=== PATIENT | female | born 1965 | race Two or more races ===

== ENCOUNTER → 2016-07-19 | Outpatient (CLI) | payer OTHER ==
[2016-07-19 13:26] LABS: ALANINE AMINOTRANSFERASE 27 U/L (9-52); ALBUMIN 4.3 g/dL (3.5-5.0); ALKALINE PHOSPHATASE 101 U/L (38-126); ANION GAP 10 (5-19); ASPARTATE AMINO TRANSFERASE 22 U/L (14-36); BILIRUBIN,TOTAL 0.4 mg/dL (0.2-1.3); BLOOD UREA NITROGEN 26 mg/dL (7-20); CALCIUM 9.7 mg/dL (8.4-10.2); CARBON DIOXIDE 32 mmol/L (22-30); CHLORIDE 101 mmol/L (98-107); CREATININE RESULT 0.67 mg/dL (0.52-1.25); GLUCOSE 94 mg/dL (75-110); SODIUM 142.9 mmol/L (137-145); TOTAL PROTEIN 7.4 g/dL (6.3-8.2)
[2016-07-23 12:21] LABS: CHOLESTEROL 212.31 mg/dL (0-200); Direct HDL 47 mg/dL (>40); TRIGLYCERIDES 71 mg/dL (<150)
[2016-07-23 12:33] LABS: DIRECT LDL 157 mg/dL (<100)
== END ==
LOC: CCC 12:21
DX: I10 Essential (primary) hypertension (principal)
CPT/HCPCS: 36415; 80053; 80061; 83036; 84436; 84443

== ENCOUNTER 2019-01-19 08:28 | Emergency (ER) | payer SELFPAY ==
--- NOTE | 2019-01-19 09:47 | RADIOLOGY REPORT (SQ) ---
EXAM DESCRIPTION: FOOT RIGHT COMPLETE COMPLETED DATE/TIME: 01/19/2019 9:30 am REASON FOR STUDY: foot injury COMPARISON: None. NUMBER OF VIEWS: Three views. TECHNIQUE: AP, lateral and oblique radiographic images acquired of the right foot. LIMITATIONS: None. FINDINGS: MINERALIZATION: Normal. BONES: No acute fracture or dislocation. No worrisome bone lesions. JOINTS: Hallux valgus deformity right great toe. Mild medial soft tissue swelling. Minimal bony spu rring along the dorsal aspect of the 2nd and 3rd tarsometatarsal joints SOFT TISSUES: 1st metatarsophalangeal joint soft tissue swelling. No foreign body. OTHER: No other significant finding. IMPRESSION: No acute findings TECHNICAL DOCUMENTATION: JOB ID: [id number] [employer]- All Rights Reserved Reading location - IP/workstation name: [email or web address]
[2019-01-19 10:21] VITALS: BP 146/89
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
== END 2019-01-19 10:41 | disposition home or self-care (01) ==
LOC: ER 08:28
DX: S80.00XA Contusion of unspecified knee, initial encounter (principal); S80.211A Abrasion, right knee, initial encounter; X58.XXXA Exposure to other specified factors, initial encounter; S90.819A Abrasion, unspecified foot, initial encounter; S90.416A Abrasion, unspecified lesser toe(s), initial encounter; W19.XXXA Unspecified fall, initial encounter; Y93.39 Activity, other involving climbing, rappelling and jumping off; I10 Essential (primary) hypertension; F17.200 Nicotine dependence, unspecified, uncomplicated
CPT/HCPCS: 99283

== ENCOUNTER 2019-03-24 10:38 | Emergency (ER) | payer BC ==
[2019-03-24 10:49] VITALS: BP 134/87
[2019-03-24] MEDS ORDERED: ACETAMINOPHEN 325 MG TABLET PO ONE (11:04)
--- NOTE | 2019-03-24 11:07 | ER Document Report ---
HPI - HPI Time Seen by Provider: 03/24/19 10:57 Pain Level: 5 Context: Patient is a 54-year-old female with a history of hypertension, hyperlipidemia, and arthritis who presents emergency department with a chief complaint of right hand pain, knee pain, and elbow pain. She has been diagnosed with carpal tunnel syndrome. She wears her brace periodically. She just recently started a new job in a [employer], which has aggravated her carpal tunnel and her arthritis in her knee. She took Goody powders to help with pain, which has given her a little relief. She also uses Voltaren gel at home. - ROS Systems Reviewed and Negative: Yes All other systems reviewed and negative - REPRODUCTIVE Reproductive: DENIES: : - MUSCULOSKELETAL Musculoskeletal: REPORTS: Extremity pain - Right knee, hand, and wrist - DERM Skin Color: Normal Skin Problems: None Past Medical History - General Information source: Patient - Social History Smoking Status: Current Every Day Smoker Chew tobacco use (# tins/day): No Frequency of alcohol use: Rare Drug Abuse: None Family History: Reviewed & Not Pertinent, CAD - Brother with 3 vessel bypass at 53 years old., DM, Hypertension Patient has suicidal ideation: No Patient has homicidal ideation: No - Past Medical History Cardiac Medical History: Reports: Hx Hypercholesterolemia, Hx Hypertension Denies: Hx Coronary Artery Disease, Hx Heart Attack Pulmonary Medical History: Denies: Hx Asthma, Hx Bronchitis, Hx COPD, Hx Pneumonia, Hx Tuberculosis Neurological Medical History: Reports: Hx Migraine. Denies: Hx Cerebrovascular Accident, Hx Seizures Renal/ Medical History: Denies: Hx Peritoneal Dialysis GI Medical History: Reports: Hx Gastroesophageal Reflux Disease Musculoskeletal Medical History: Denies Hx Arthritis Past Surgical History: Reports: Hx Breast Surgery - lumpectomy, Hx Hysterectomy, Hx Tubal Ligation. Denies: Hx Pacemaker - Immunizations Hx Diphtheria, Pertussis, Tetanus Vaccination: Yes Vertical Provider Document - CONSTITUTIONAL Agree With Documented VS: Yes Exam Limitations: No Limitations General Appearance: No Apparent Distress - INFECTION CONTROL TRAVEL OUTSIDE OF THE [place] IN LAST 30 DAYS: No - HEENT HEENT: Atraumatic, Normocephalic, PERRLA - NECK Neck: Normal Inspection - RESPIRATORY Respiratory: No Respiratory Distress - CARDIOVASCULAR Cardiovascular: Regular Rate, Regular Rhythm Pulses: Normal: Radial, Dorsalis pedis - MUSCULOSKELETAL/EXTREMETIES Musculoskeletal/Extremeties: FROM, Tender - Right knee and right wrist - NEURO Level of Consciousness: Awake, Alert, Appropriate Motor/Sensory: No Motor Deficit, No Sensory Deficit - DERM Integumentary: Warm, Dry, No Rash Course - Re-evaluation Re-evalutation: 03/24/19 There are no acute findings in the patient's x-rays at that time. I suspect her hand pain is an exacerbation of her carpal tunnel syndrome and her knee pain is from her arthritis. She will be referred to orthopedics for further management. I encouraged her to continue to wear her Mir wrap or splint to help with her carpal tunnel. She will also receive a prescription for naproxen for pain relief. I instructed her not to take ibuprofen at this time. Capillary refill less than 3 seconds. Peripheral pulses 2+. No vascular compromise noted. Pat ient able to move all limbs and digits with no difficulty. Follow-up precautions were given. Verbal discharge instructions were given to the patient. They verbalized understanding. They are stable for discharge. - Vital Signs Vital signs: Temp Pulse Resp BP Pulse Ox 98.0 F 64 18 134/87 H 98 03/24/19 10:48 03/24/19 10:48 03/24/19 10:48 03/24/19 10:48 03/24/19 10:48 Discharge - Discharge Clinical Impression: Right knee pain Qualifiers: Chronicity: chronic Qualified Code(s): M25.561 - Pain in right knee Condition: Stable Disposition: HOME, SELF-CARE Additional Instructions: You are seen today in the emergency department for right hand pain, elbow pain, and knee pain. The pain you are having is most likely due to your arthritis and your carpal tunnel. Please continue to use an Mir wrap or your brace to help with your symptoms. You are being prescribed naproxen, medication to help with pain. Please take this as directed. Please follow-up with orthopedics in regards to this visit. Please establish primary care provider. They may be able to refer you for physical therapy. Prescriptions: Naproxen Sodium [All Day Pain Relief] 220 mg PO BIDP PRN #60 tablet PRN Reason: Forms: Return to Work Referrals: TONIO WILKINS MD [ACTIVE STAFF] - Follow up in 1 week
--- NOTE | 2019-03-24 11:38 | RADIOLOGY REPORT (SQ) ---
EXAM DESCRIPTION: ELBOW RIGHT OVER 2 VIEWS COMPLETED DATE/TIME: 03/24/2019 11:30 am REASON FOR STUDY: pain COMPARISON: None. NUMBER OF VIEWS: Four views. TECHNIQUE: AP, lateral, and both oblique radiographic images acquired of the right elbow. LIMITATIONS: None. FINDINGS: MINERALIZATION: Normal. BONES: No acute fracture or dislocation. No worrisome bone lesions. JOINT: No effusion. SOFT TISSUES: No soft tissue swelling. No foreign body. OTHER: No other significant finding. IMPRESSION: NEGATIVE STUDY OF THE RIGHT ELBOW. NO RADIOGRAPHIC EVIDENCE OF ACUTE INJURY. TECHNICAL DOCUMENTATION: JOB ID: [id number] [employer]- All Rights Reserved Reading location - IP/workstation name: [email or web address]
--- NOTE | 2019-03-24 11:38 | RADIOLOGY REPORT (SQ) ---
EXAM DESCRIPTION: HAND RIGHT 3 VIEWS COMPLETED DATE/TIME: 03/24/2019 11:30 am REASON FOR STUDY: pain/arthritis COMPARISON: 12/26/2015 EXAM PARAMETERS: NUMBER OF VIEWS: Three views. TECHNIQUE: AP, lateral and oblique radiographic images acquired of the right hand. LIMITATIONS: None. FINDINGS: MINERALIZATION: Normal. BONES: No acute fracture or dislocation. No worrisome bone lesions. JOINTS: No effusions. SOFT TISSUES: No soft tissue swelling. No foreign body. OTHER: No other significant finding. IMPRESSION: NEGATIVE STUDY OF THE RIGHT HAND. NO RADIOGRAPHIC EVIDENCE OF ACUTE INJURY. TECHNICAL DOCUMENTATION: JOB ID: [id number] [employer]- All Rights Reserved Reading location - IP/workstation name: [email or web address]
--- NOTE | 2019-03-24 11:39 | RADIOLOGY REPORT (SQ) ---
EXAM DESCRIPTION: KNEE RIGHT 4 VIEWS COMPLETED DATE/TIME: 03/24/2019 11:30 am REASON FOR STUDY: pain/arthritis COMPARISON: 01/11/2012 NUMBER OF VIEWS: Four views. TECHNIQUE: AP, lateral, and both oblique radiographic images acquired of the right knee. LIMITATIONS: None. FINDINGS: MINERALIZATION: Normal. BONES: No acute fracture or dislocation. No worrisome bone lesions. JOINT: No effusion. SOFT TISSUES: No soft tissue swelling. No radio-opaque foreign body. OTHER: No other significant finding. IMPRESSION: NEGATIVE STUDY OF THE RIGHT KNEE. NO RADIOGRAPHIC EVIDENCE OF ACUTE INJURY. TECHNICAL DOCUMENTATION: JOB ID: [id number] [employer]- All Rights Reserved Reading location - IP/workstation name: [email or web address]
== END 2019-03-24 12:38 | disposition home or self-care (01) ==
LOC: ER 10:38
DX: M79.641 Pain in right hand (principal); M25.561 Pain in right knee; M25.521 Pain in right elbow; F17.200 Nicotine dependence, unspecified, uncomplicated; I10 Essential (primary) hypertension; E78.5 Hyperlipidemia, unspecified; E78.00 Pure hypercholesterolemia, unspecified; Z90.710 Acquired absence of both cervix and uterus
CPT/HCPCS: 99283

== ENCOUNTER 2019-06-06 13:11 | Emergency (ER) | payer BC ==
--- NOTE | 2019-06-06 13:51 | ER Document Report ---
ED Medical Screen (RME) - General Chief Complaint: Headache Stated Complaint: BLOOD PRESSURE CONCERNS Time Seen by Provider: 06/06/19 13:39 Notes: 54-year-old female with history of kidney cancer presents to the emergency department with multiple chief complaints, the primary one being a severe headache. Patient states that she ran out of her antihypertensives 1 month ago and has had a headache develop since then. She states that every time she runs out of her blood pressure medication she gets a severe headache and is concerned that it might be blood pressure related. Also, she had some left sided chest pain approximately 48 hours ago that persisted for about 12 hours, was constant and dull, did not radiate, was not relieved by antacids or passing gas. Patient states she was also clammy and nauseated during that time but has since resolved. Exam: Well-appearing no acute distress, lungs are clear to auscultation all oliva, regular cardiac rate and rhythm S1-S2 heard no murmurs. NEURO: A &O X 3, normal speech, normal gailt, PERRL, EOMI, SILT, follows commands in all 4 extremities, no gross abnormalities of cranial nerves, no focal neuro deficits, no pronator drift, [id number] testing normal, rapid alternating hand movements normal, [id number] normal, filament tester strength 5/5 bilateral, 5/5 strength in both proximal and distal upper and lower extremities I have greeted and performed a rapid initial assessment of this patient. A comprehensive ED assessment and evaluation of the patient, analysis of test results and completion of medical decision making process will be conducted by an additional ED providers. TRAVEL OUTSIDE OF THE [place] IN LAST 30 DAYS: No - Related Data Allergies/Adverse Reactions: Iodinated Contrast Media Allergy (Intermediate, Verified 06/06/19 13:36) Hives iodine [Iodine] Allergy (Intermediate, Verified 06/06/19 13:36) Hives CHLORINE Adverse Reaction (Uncoded 06/06/19 13:36) Hives Past Medical History - Past Medical History Cardiac Medical History: Reports: Hx Hypercholesterolemia, Hx Hypertension Denies: Hx Coronary Artery Disease, Hx Heart Attack Pulmonary Medical History: Denies: Hx Asthma, Hx Bronchitis, Hx COPD, Hx Pneumonia, Hx Tuberculosis Neurological Medical History: Reports: Hx Migraine. Denies: Hx Cerebrovascular Accident, Hx Seizures Renal/ Medical History: Denies: Hx Peritoneal Dialysis GI Medical History: Reports: Hx Gastroesophageal Reflux Disease Musculoskeltal Medical History: Denies Hx Arthritis Past Surgical History: Reports: Hx Breast Surgery - lumpectomy, Hx Hysterectomy, Hx Tubal Ligation. Denies: Hx Pacemaker - Immunizations Hx Diphtheria, Pertussis, Tetanus Vaccination: Yes Physical Exam - Vital signs Vitals: Temp Pulse Resp BP Pulse Ox 98.6 F 95 16 172/96 H 95 06/06/19 13:22 06/06/19 13:22 06/06/19 13:22 06/06/19 13:22 06/06/19 13:22 Course - Vital Signs Vital signs: Temp Pulse Resp BP Pulse Ox 98.6 F 95 16 172/96 H 95 06/06/19 13:22 06/06/19 13:22 06/06/19 13:22 06/06/19 13:22 06/06/19 13:22
[2019-06-06] MEDS ORDERED: NORMAL SALINE 1000 ML 1,000 ML IV ONE (14:41)
[2019-06-06] MEDS ORDERED: MORPHINE SULFATE 10 MG/ML INJ IV ONE (14:41)
[2019-06-06] MEDS ORDERED: ONDANSETRON HCL INJ/PF 4 MG/2 ML SDV IV ONE ×2 (14:41→15:55)
--- NOTE | 2019-06-06 15:11 | RADIOLOGY REPORT (SQ) ---
EXAM DESCRIPTION: CHEST SINGLE VIEW COMPLETED DATE/TIME: 06/06/2019 2:52 pm REASON FOR STUDY: chest pain COMPARISON: 11/24/2015 EXAM PARAMETERS: NUMBER OF VIEWS: One view. TECHNIQUE: Single frontal radiographic view of the chest acquired. RADIATION DOSE: NA LIMITATIONS: None. FINDINGS: LUNGS AND PLEURA: No opacities, masses or pneumothorax. No pleural effusion. MEDIASTINUM AND HILAR STRUCTURES: No masses. Contour normal. HEART AND VASCULAR STRUCTURES: Heart normal in size. Normal vasculature. BONES: No acute findings. HARDWARE: None in the chest. OTHER: No other significant finding. IMPRESSION: NO ACUTE RADIOGRAPHIC FINDING IN THE CHEST. TECHNICAL DOCUMENTATION: JOB ID: [id number] [employer]- All Rights Reserved Reading location - IP/workstation name: [email or web address]
--- NOTE | 2019-06-06 15:12 | RADIOLOGY REPORT (SQ) ---
EXAM DESCRIPTION: CT HEAD WITHOUT COMPLETED DATE/TIME: 06/06/2019 2:52 pm REASON FOR STUDY: severe headache COMPARISON: None. TECHNIQUE: Axial images acquired through the brain without intravenous contrast. Images reviewed wi th bone, brain and subdural windows. Additional sagittal and coronal reconstructions were generated. Images stored on PACS. All CT scanners at this facility use dose modulation, iterative reconstruction, and/or weight based d osing when appropriate to reduce radiation dose to as low as reasonably achievable (ALARA). [facility]: Dose Right [facility]: CareDose [facility]: Dose Right [facility]: Teradose 4D [facility]: Elepago RADIATION DOSE: CT Rad equipment meets quality standard of care and radiation dose reduction techniq ues were employed. CTDIvol: 53.2 mGy. DLP: 964 mGy-cm. mGy. LIMITATIONS: None. FINDINGS: VENTRICLES: Normal size and contour. CEREBRUM: No masses. No hemorrhage. No midline shift. No evidence for acute infarction. Normal gra y/white matter differentiation. No areas of low density in the white matter. CEREBELLUM: No masses. No hemorrhage. No alteration of density. No evidence for acute infarction. EXTRAAXIAL SPACES: No fluid collections. No masses. ORBITS AND GLOBE: No intra- or extraconal masses. Normal contour of globe without masses. CALVARIUM: No fracture. PARANASAL SINUSES: No fluid or mucosal thickening. SOFT TISSUES: No mass or hematoma. OTHER: No other significant finding. IMPRESSION: NORMAL BRAIN CT WITHOUT CONTRAST. EVIDENCE OF ACUTE STROKE: NO. COMMENT: Quality ID # [id number]: Final reports with documentation of one or more dose reduction techniques (e.g., Automated exposure control, adjustment of the mA and/or kV according to patient size, use of iterative reconstruction technique) TECHNICAL DOCUMENTATION: JOB ID: [id number] [employer]- All Rights Reserved Reading location - IP/workstation name: [email or web address]
[2019-06-06 15:35] LABS: ABSOLUTE BASOPHILS # (AUTO) 0.1 10^3/uL (0.0-0.2); ABSOLUTE EOSINOPHILS # (AUTO) 0.2 10^3/uL (0.0-0.6); ABSOLUTE LYMPHOCYTES (AUTO) 2.6 10^3/uL (0.5-4.7); ABSOLUTE MONOCYTES (AUTO) 0.7 10^3/uL (0.1-1.4); ABSOLUTE NEUT (AUTO) 5.3 10^3/uL (1.7-8.2); BASOPHILS % (AUTO) 0.7 % (0-2); EOSINOPHILS % (AUTO) 1.8 % (0-6); HEMATOCRIT 45.6 % (36.0-47.0); HEMOGLOBIN 15.3 g/dL (12.0-15.5); LYMPHOCYTES % (AUTO) 29.6 % (13-45); MEAN CORPUSCULAR HEMOGLOBIN 29.1 pg (27.0-33.4); MEAN CORPUSCULAR HGB CONC 33.4 g/dL (32.0-36.0); MEAN CORPUSCULAR VOLUME 87 fl (80-97); MONOCYTES % (AUTO) 7.8 % (3-13); PLATELET COUNT 333 10^3/uL (150-450); RED BLOOD COUNT 5.24 10^6/uL (3.72-5.28); RED CELL DISTRIBUTION WIDTH 14.5 % (11.5-14.0); SEGMENTED NEUTROPHILS % (AUTO) 60.1 % (42-78); TOTAL CELLS COUNTED % (AUTO) 100 %; WHITE BLOOD COUNT 8.8 10^3/uL (4.0-10.5)
[2019-06-06 15:48] LABS: A TYPE INFLUENZA AG NEGATIVE (NEGATIVE); B INFLUENZA AG NEGATIVE (NEGATIVE)
[2019-06-06 15:54] LABS: ALBUMIN 4.4 g/dL (3.5-5.0); ALKALINE PHOSPHATASE 116 U/L (38-126); ANION GAP 9 (5-19); ASPARTATE AMINO TRANSFERASE 20 U/L (14-36); BILIRUBIN,DIRECT 0.2 mg/dL (0.0-0.4); BILIRUBIN,TOTAL 0.3 mg/dL (0.2-1.3); BLOOD UREA NITROGEN 22 mg/dL (7-20); CARBON DIOXIDE 31 mmol/L (22-30); CHLORIDE 103 mmol/L (98-107); GLUCOSE 99 mg/dL (75-110); POTASSIUM 4.7 mmol/L (3.6-5.0); TOTAL PROTEIN 7.9 g/dL (6.3-8.2)
--- NOTE | 2019-06-06 16:11 | ER Document Report ---
ED General - General Chief Complaint: Headache Stated Complaint: BLOOD PRESSURE CONCERNS Time Seen by Provider: 06/06/19 13:39 TRAVEL OUTSIDE OF THE U.S. IN LAST 30 DAYS: No - HPI Notes: 54-year-old female to the emergency department with multiple complaints. Patient's first complaint is that she has had a headache to the top of her head for nearly 1 month. She states that she has been out of her blood pressure medicine HCTZ 25 mg and lisinopril 20 mg for about 1 month. She states that she typically gets headaches when she is not on her blood pressure medicine. She denies any difficulty speaking, walking, numbness and tingling, blurry vision, dizziness, shortness of breath. She states that for the past 36 hours she has been experiencing epigastric abdominal pain that radiates into her chest with some nausea and vomiting. She states that she was at work at 2 AM on Friday morning when her symptoms began. She states initially she thought that she was constipated and needed to use the restroom but found that was not the case. She states the pain was constant through that day and she ended up spending most of the day in the bed at her daughter's house. She states that she took some Tums and had a little bit of relief of her symptoms but then at about 2 AM this morning she began to have vomiting. She states when she vomits she becomes diaphoretic. She denies shortness of breath or increase in chest pain when she is exerting herself. She states mainly is within the abdomen and then kind of comes up into the chest. She states she continues to feel little bit of abdominal pain and chest pain currently. She denies any history of cardiac events in herself. Her brother who is 59 has had a heart attack and a triple bypass. Other than that there is no other family history of coronary artery disease. She is a smoker. She does have a history of hypertension. She denies a history of diabetes or hyperlipidemia. She has a history of renal cancer but she is currently in remission. She denies any leg swelling, denies history of DVT. She is not on any hormone replacement therapy. - Related Data Allergies/Adverse Reactions: Iodinated Contrast Media Allergy (Intermediate, Verified 06/06/19 13:36) Hives iodine [Iodine] Allergy (Intermediate, Verified 06/06/19 13:36) Hives CHLORINE Adverse Reaction (Uncoded 06/06/19 13:36) Hives Past Medical History - General Information source: Patient - Social History Smoking Status: Current Every Day Smoker Lives with: Family Family History: Reviewed & Not Pertinent, CAD - Brother with 3 vessel bypass at 53 years old., DM, Hypertension Patient has suicidal ideation: No Patient has homicidal ideation: No - Past Medical History Cardiac Medical History: Reports: Hx Hypercholesterolemia, Hx Hypertension Denies: Hx Coronary Artery Disease, Hx Heart Attack Pulmonary Medical History: Denies: Hx Asthma, Hx Bronchitis, Hx COPD, Hx Pneumonia, Hx Tuberculosis Neurological Medical History: Reports: Hx Migraine. Denies: Hx Cerebrovascular Accident, Hx Seizures Renal/ Medical History: Denies: Hx Peritoneal Dialysis GI Medical History: Reports: Hx Gastroesophageal Reflux Disease Musculoskeletal Medical History: Denies Hx Arthritis Past Surgical History: Reports: Hx Breast Surgery - lumpectomy, Hx Hysterectomy, Hx Tubal Ligation. Denies: Hx Pacemaker - Immunizations Hx Diphtheria, Pertussis, Tetanus Vaccination: Yes Review of Systems - Review of Systems Constitutional: Diaphoresis - Sweaty when vomiting. denies: Chills, Fever EENT: No symptoms reported Cardiovascular: Chest pain. denies: Palpitations, Heart racing, Syncope, Dizziness, Lightheaded Respiratory: denies: Cough, Short of breath Gastrointestinal: See HPI, Abdominal pain, Nausea, Vomiting. denies: Diarrhea Genitourinary: No symptoms reported Female Genitourinary: No symptoms reported Musculoskeletal: No symptoms reported Skin: No symptoms reported Hematologic/Lymphatic: No symptoms reported Neurological/Psychological: Headaches. denies: Sensory change, Gait changes, Loss of power, Paralysis, Speech impairment, Numbness, Tingling -: Yes All other systems reviewed and negative Physical Exam - Vital signs Vitals: Temp Pulse Resp BP Pulse Ox 98.6 F 95 16 172/96 H 95 06/06/19 13:22 06/06/19 13:22 06/06/19 13:22 06/06/19 13:22 06/06/19 13:22 Interpretation: Hypertensive - General General appearance: Appears well, Alert - HEENT Head: Normocephalic, Atraumatic Eyes: Normal Pupils: PERRL Ears: Normal External canal: Normal Tympanic membrane: Normal Sinus: Normal Nasal: Normal Mouth/Lips: Normal Pharynx: Normal. No: Potential airway comprom. Neck: Normal, Supple. No: Lymphadenopathy, Meningismus - Respiratory Respiratory status: No respiratory distress Chest status: Nontender Breath sounds: Normal. No: Rales, Rhonchi, Stridor, Wheezing Chest palpation: Normal - Cardiovascular Rhythm: Regular Heart sounds: Normal auscultation Murmur: No - Abdominal Inspection: Normal Distension: No distension Bowel sounds: Normal Tenderness: Tender - Positive epigastric tenderness to palpation. Negative right upper quadrant tenderness to palpation. No guarding, no rebound. Negative McBurney's point, negative CVA tenderness. 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 No: Pronator drift Sensory: Normal - Psychological Associated symptoms: Normal affect, Normal mood - Skin Skin Temperature: Warm Skin Moisture: Dry Skin Color: Normal Course - Re-evaluation Re-evalutation: 06/06/19 16:12 patient with episode of vomiting. ordered zofran. Will continue to monitor the patient. 06/06/19 18:25 Patient improved significantly and tolerated PO. Will discharge home. Impression: NV, epigastric pain, headache, HTN, med refill. Low suspicion that her epigastric pain that radiates into her chest is cardiac in origin -- it's been constant for nearly 24 hours. She has a HEART SCORE of 3. She has reas suring imaging studies. Trop is negative. low wells criteria. She has an appointment with [facility] for June 28 and I have encouraged her to keep it. - Vital Signs Vital signs: Temp Pulse Resp BP Pulse Ox 98 F 95 23 H 160/94 H 98 06/06/19 16:01 06/06/19 13:22 06/06/19 17:01 06/06/19 17:01 06/06/19 17:01 - Laboratory Result Diagrams: 06/06/19 15:05 06/06/19 15:05 Laboratory results interpreted by me: 06/06/19 06/06/19 15:05 15:05 RDW 14.5 H Carbon Dioxide 31 H BUN 22 H - Diagnostic Test Radiology reviewed: Image reviewed, Reports reviewed Discharge - Discharge Clinical Impression: Epigastric abdominal pain Vomiting Qualifiers: Vomiting type: unspecified Vomiting Intractability: non-intractable Nausea presence: with nausea Qualified Code(s): R11.2 - Nausea with vomiting, unspecified Hypertension Qualifiers: Hypertension type: essential hypertension Qualified Code(s): I10 - Essential (primary) hypertension Headache Qualifiers: Headache type: unspecified Headache chronicity pattern: acute headache Intractability: not intractable Qualified Code(s): R51 - Headache Condition: Stable Disposition: HOME, SELF-CARE Instructions: Abdominal Pain ([facility]), High Blood Pressure ([facility]), Vomiting ([facility]) Additional Instructions: PUSH FLUIDS. BLAND DIET TOLERATED. TAKE YOUR BLOOD PRESSURE MEDICINE WITHOUT FAIL. RETURN IF WORSENING SYMPTOMS. Prescriptions: Ondansetron [Zofran Odt 4 mg Tablet] 1 - 2 tab PO Q4HP PRN #10 tab.rapdis PRN Reason: Lisinopril/Hydrochlorothiazide [Lisinopril-Hctz 20-25 mg Tab] 1 each PO DAILY #30 tablet
[2019-06-06] MEDS ORDERED: HYDROCHLOROTHIAZIDE 25 MG TABLET PO ONE (17:13)
[2019-06-06] MEDS ORDERED: KETOROLAC TROMETHAMINE INJ/PF 30 MG/1 ML SDV IV ONE (17:13)
[2019-06-06] MEDS ORDERED: LISINOPRIL 10 MG TABLET PO ONE (17:13)
--- NOTE | 2019-06-06 17:14 | EKG REPORT ---
SEVERITY:- ABNORMAL ECG - SINUS RHYTHM PROBABLE LEFT ATRIAL ABNORMALITY PROBABLE ANTEROSEPTAL INFARCT, AGE INDETERM : Confirmed by: Miah Hugo 06-Jun-2019 17:13:22
--- NOTE | 2019-06-06 17:15 | EKG REPORT ---
SEVERITY:- ABNORMAL ECG - SINUS RHYTHM PROBABLE LEFT ATRIAL ABNORMALITY BORDERLINE RIGHT AXIS DEVIATION CONSIDER ANTEROSEPTAL INFARCT : Confirmed by: Miah Hugo 06-Jun-2019 17:13:12
[2019-06-06 19:07] VITALS: BP 157/80
== END 2019-06-06 19:02 | disposition home or self-care (01) ==
LOC: ER 13:11
DX: R51 Headache (principal); R10.13 Epigastric pain; F17.200 Nicotine dependence, unspecified, uncomplicated; E78.00 Pure hypercholesterolemia, unspecified; I10 Essential (primary) hypertension; Z85.528 Personal history of other malignant neoplasm of kidney; Z90.710 Acquired absence of both cervix and uterus
CPT/HCPCS: 93005; 96376; 99285; 96361; 96374; 96375; 36415; 83690; 85025; 80053; 84484; 87804; 71045; 70450; 93010; J1885; J2270; J2405; J7030

== ENCOUNTER 2019-11-22 17:41 | Emergency (ER) | payer BC ==
--- NOTE | 2019-11-22 17:59 | ER Document Report ---
ED Medical Screen (RME) - General Chief Complaint: Abdominal Pain Stated Complaint: RIGHT FLANK PAIN Time Seen by Provider: 11/22/19 17:56 Mode of Arrival: Ambulatory Information source: Patient Notes: 54-year-old female presented to ED for complaint of right upper quadrant abdominal pain. She has had a cholecystectomy 2 years ago. She states she does get this pain off and on but is never lasted as long as the did the day. She has had a hysterectomy in the past. She does have a history of high blood pressure, reflux, colonoscopy that was benign, and kidney cancer on the left the cancer was removed but the kidney was spared. She does smoke a pack a day does not drink or do any illicit drugs. Patient is alert oriented respirations regular and unlabored speaking in full sentences. She denies any nausea at this time. I have greeted and performed a rapid initial assessment of this patient. A comprehensive ED assessment and evaluation of the patient, analysis of test results and completion of medical decision making process will be conducted by an additional ED providers. TRAVEL OUTSIDE OF THE U.[place]. IN LAST 30 DAYS: No - Related Data Allergies/Adverse Reactions: Iodinated Contrast Media Allergy (Intermediate, Verified 11/22/19 17:53) Hives iodine [Iodine] Allergy (Intermediate, Verified 11/22/19 17:53) Hives CHLORINE Adverse Reaction (Uncoded 11/22/19 17:53) Hives Past Medical History - Past Medical History Cardiac Medical History: Reports: Hx Hypercholesterolemia, Hx Hypertension Denies: Hx Coronary Artery Disease, Hx Heart Attack Pulmonary Medical History: Denies: Hx Asthma, Hx Bronchitis, Hx COPD, Hx Pneumonia, Hx Tuberculosis Neurological Medical History: Reports: Hx Migraine. Denies: Hx Cerebrovascular Accident, Hx Seizures Renal/ Medical History: Denies: Hx Peritoneal Dialysis GI Medical History: Reports: Hx Gastroesophageal Reflux Disease Musculoskeltal Medical History: Denies Hx Arthritis Past Surgical History: Reports: Hx Breast Surgery - lumpectomy, Hx Cholecystectomy, Hx Hysterectomy, Hx Tonsillectomy, Hx Tubal Ligation. Denies: Hx Pacemaker - Immunizations Hx Diphtheria, Pertussis, Tetanus Vaccination: Yes Physical Exam - Vital signs Vitals: Temp Pulse BP Pulse Ox 98.8 F 87 142/81 H 96 11/22/19 17:48 11/22/19 17:48 11/22/19 17:48 11/22/19 17:48 Course - Vital Signs Vital signs: Temp Pulse Resp BP Pulse Ox 98.8 F 87 142/81 H 96 11/22/19 17:48 11/22/19 17:48 11/22/19 17:48 11/22/19 17:48
[2019-11-22 18:31] LABS: ABSOLUTE BASOPHILS # (AUTO) 0.1 10^3/uL (0.0-0.2); ABSOLUTE EOSINOPHILS # (AUTO) 0.5 10^3/uL (0.0-0.6); ABSOLUTE LYMPHOCYTES (AUTO) 3.8 10^3/uL (0.5-4.7); ABSOLUTE MONOCYTES (AUTO) 0.7 10^3/uL (0.1-1.4); ABSOLUTE NEUT (AUTO) 3.3 10^3/uL (1.7-8.2); APPEARANCE,URINE SLIGHTLY-CLOUDY; BILIRUBIN,URINE NEGATIVE (NEGATIVE); COLOR,URINE YELLOW; EOSINOPHILS % (AUTO) 5.5 % (0-6); GLUCOSE, URINE NEGATIVE (NEGATIVE); HEMATOCRIT 42.1 % (36.0-47.0); HEMOGLOBIN 14.3 g/dL (12.0-15.5); KETONES,URINE NEGATIVE (NEGATIVE); LEUKOCYTE ESTERASE,URINE NEGATIVE (NEGATIVE); LYMPHOCYTES % (AUTO) 46.1 % (13-45); MEAN CORPUSCULAR HEMOGLOBIN 29.9 pg (27.0-33.4); MEAN CORPUSCULAR HGB CONC 34.1 g/dL (32.0-36.0); MEAN CORPUSCULAR VOLUME 88 fl (80-97); MONOCYTES % (AUTO) 7.9 % (3-13); NITRITE,URINE NEGATIVE (NEGATIVE); PLATELET COUNT 324 10^3/uL (150-450); PROTEIN,URINE NEGATIVE (NEGATIVE); RED CELL DISTRIBUTION WIDTH 14.3 % (11.5-14.0); SEGMENTED NEUTROPHILS % (AUTO) 39.5 % (42-78); TOTAL CELLS COUNTED % (AUTO) 100 %; URINE SPECIFIC GRAVITY 1.015; UROBILINOGEN,URINE NEGATIVE mg/dL (<2.0); WHITE BLOOD COUNT 8.3 10^3/uL (4.0-10.5)
--- NOTE | 2019-11-22 19:42 | RADIOLOGY REPORT (SQ) ---
EXAM DESCRIPTION: U/S ABDOMEN LIMITED W/O DOP IMAGES COMPLETED DATE/TIME: 11/22/2019 7:31 pm REASON FOR STUDY: Right upper quadrant/flank pain prior cholecystect COMPARISON: None. TECHNIQUE: Dynamic and static grayscale images acquired of the abdomen and recorded on PACS. Additio nal selected color Doppler and spectral images recorded. LIMITATIONS: None. FINDINGS: PANCREAS: No masses. Visualized pancreatic duct normal caliber. LIVER: No masses. Increased echogenicity. LIVER VASCULATURE: Normal directional flow of the main portal vein and hepatic veins. GALLBLADDER: Surgically absent. ULTRASOUND-DETECTED MENDOZA'S SIGN: Not applicable. INTRAHEPATIC DUCTS AND COMMON DUCT: CBD and intrahepatic ducts normal caliber. No filling defects. INFERIOR VENA CAVA: Not imaged. AORTA: No aneurysm. RIGHT KIDNEY: Normal size normal size, 11.4 cm. Normal echogenicity. No solid or suspicious masses. No hydronephrosis. No calcifications. PERITONEAL AND RIGHT PLEURAL SPACE: No ascites or effusions. OTHER: No other significant findings. IMPRESSION: Hepatic steatosis. No other significant finding. TECHNICAL DOCUMENTATION: JOB ID: [id number] [employer]- All Rights Reserved Reading location - IP/workstation name: [email or web address]
[2019-11-22] MEDS ORDERED: LIDOCAINE 2% VISCOUS SOLN 15 ML UDCUP PO ONE (19:49)
[2019-11-22] MEDS ORDERED: METOCLOPRAMIDE HCL ORAL SOLN 10 MG/10 ML UDCUP PO ONE (19:49)
[2019-11-22] MEDS ORDERED: MAG HYDROX/AL HYDROX/SIMETH SUSP 30 ML UDCUP PO ONE (19:49)
--- NOTE | 2019-11-22 20:03 | ER Document Report ---
ED GI/ - General Mode of Arrival: Ambulatory TRAVEL OUTSIDE OF THE [place].S. IN LAST 30 DAYS: No - Related Data Home Medications: rosuvastatin, omeprazole, lisinopril/hctz, diclofenac gel <PITER REIS - Last Filed: 11/22/19 20:01> <KALINA HIGGINS - Last Filed: 11/23/19 00:41> - General Chief Complaint: Upper Abdominal Pain Stated Complaint: RIGHT FLANK PAIN Time Seen by Provider: 11/22/19 17:56 Notes: HPI: Patient is a 54-year-old female who presents today with some intermittent abdominal pain for the last year to the right upper quadrant. She states mild radiation to the back. She denies any real aggravating or relieving factors. She had her gallbladder removed 2 years ago in [place]. While 6 weeks later she had a partial left nephrectomy secondary to cancer. No chemotherapy currently. Patient did have an endoscopy in July and states they found ulcers. She is on acid blocking medication. She denies any radiation to the chest, cough, shortness of breath. ROS: See HPI All other review of systems reviewed and otherwise negative Reviewed vital signs and nursing note as charted by RN. PHYSICAL EXAM: CONSTITUTIONAL: Alert and oriented and responds appropriately to questions. Well-appearing; well-nourished HEAD: Normocephalic; atraumatic EYES: Sclerae non-icteric ENT: Normal nose; no rhinorrhea; moist mucous membranes; pharynx without lesions noted NECK: Supple without meningismus; non-tender; no cervical lymphadenopathy, no masses CARD: Regular rate and rhythm; no murmurs; symmetric distal pulses RESP: Normal chest excursion without splinting or tachypnea; breath sounds clear and equal bilaterally; no wheezes, no rhonchi, no rales ABD/GI: Normal bowel sounds; non-distended; soft, minimally tender to palpation in the right upper quadrant without rebound or guarding. No palpable hepatosplenomegaly. No lower abdominal tenderness BACK: The back appears normal and is non-tender to palpation EXT: Normal ROM in all joints; non-tender to palpation; no edema SKIN: No acute lesions noted NEURO: CN 2-12 intact; 5/5 bilateral upper and lower extremity strength with sensation intact to light touch PSYCH: The patient's mood and manner are appropriate. Grooming and personal hygiene are appropriate. (PITER REIS) - Related Data Allergies/Adverse Reactions: Iodinated Contrast Media Allergy (Intermediate, Verified 11/22/19 17:53) Hives iodine [Iodine] Allergy (Intermediate, Verified 11/22/19 17:53) Hives CHLORINE Adverse Reaction (Uncoded 11/22/19 17:53) Hives Past Medical History - General Information source: Patient - Social History Smoking Status: Current Every Day Smoker Chew tobacco use (# tins/day): No Frequency of alcohol use: None Drug Abuse: None Family History: Reviewed & Not Pertinent, CAD - Brother with 3 vessel bypass at 53 years old., DM, Hypertension Patient has homicidal ideation: No - Past Medical History Cardiac Medical History: Reports: Hx Hypercholesterolemia, Hx Hypertension Denies: Hx Coronary Artery Disease, Hx Heart Attack Pulmonary Medical History: Denies: Hx Asthma, Hx Bronchitis, Hx COPD, Hx Pneumonia, Hx Tuberculosis Neurological Medical History: Reports: Hx Migraine. Denies: Hx Cerebrovascular Accident, Hx Seizures Renal/ Medical History: Denies: Hx Peritoneal Dialysis GI Medical History: Reports: Hx Gastroesophageal Reflux Disease Musculoskeletal Medical History: Denies Hx Arthritis Past Surgical History: Reports: Hx Breast Surgery - lumpectomy, Hx Cholecystectomy, Hx Hysterectomy, Hx Tonsillectomy, Hx Tubal Ligation. Denies: Hx Pacemaker - Immunizations Hx Diphtheria, Pertussis, Tetanus Vaccination: Yes <PITER REIS - Last Filed: 11/22/19 20:01> Physical Exam - Vital signs Vitals: Temp Pulse BP Pulse Ox 98.8 F 87 142/81 H 96 11/22/19 17:48 11/22/19 17:48 11/22/19 17:48 11/22/19 17:48 Course - Laboratory Result Diagrams: 11/22/19 18:16 11/22/19 18:16 <PITER REIS - Last Filed: 11/22/19 20:01> - Laboratory Result Diagrams: 11/22/19 18:16 11/22/19 19:33 <KALINA HIGGINS - Last Filed: 11/23/19 00:41> - Re-evaluation Re-evalutation: Given the history and physical examination the patient had basic labs including a liver panel and lipase ordered as well as a right upper quadrant ultrasound. 11/22/19 20:02 Labs as recorded. GI cocktail has been ordered. Ultrasound shows no acute findings. I will add a CT scan of the abdomen and pelvis. I do not believe this is of a cardiac etiology at this moment. (PITER REIS) 11/23/19 00:36 Patient turned over to me pending results of CT of her abdomen and pelvis. CT report concerning for lesion in right kidney that could represent malignancy. Discussed this finding and the possibility that cancer could be causing her symptoms and talk to her at length about the importance of closely following up with a urologist and her primary doctor regarding this. Patient demonstrated understanding of this, so she will call her primary doctor at [facility] to get referral to urologist, I also will give her information for her urologist. Also informed patient of the blood in her urine and printed out results of all lab work, urine, and her CT results that she can bring to discuss all of these findings with her primary doctor and her urologist. Patie nt feels greatly improved currently and says pain is minimal. Patient given extensive return to ED precautions which she also demonstrated understanding of. Patient ready for discharge with outpatient follow-up. (KALINA HIGGINS) - Vital Signs Vital signs: Temp Pulse Resp BP Pulse Ox 98.0 F 75 20 118/75 100 11/22/19 21:36 11/22/19 21:36 11/22/19 21:36 11/22/19 21:36 11/22/19 21:36 - Laboratory Laboratory results interpreted by me: 11/22/19 11/22/19 11/22/19 18:16 18:16 19:33 RDW 14.3 H Lymph % (Auto) 46.1 H Seg Neutrophils % 39.5 L BUN 27 H Calcium 10.3 H Urine Blood MODERATE H Discharge <PITER REIS - Last Filed: 11/22/19 20:01> <KALINA HIGGINS - Last Filed: 11/23/19 00:41> - Discharge Clinical Impression: Flank pain, Renal mass, right Hematuria Qualifiers: Hematuria type: unspecified type Qualified Code(s): R31.9 - Hematuria, unspecified Condition: Stable Disposition: HOME, SELF-CARE Additional Instructions: There are many causes of abdominal pain. Pain can mean a serious problem requiring surgery (such as appendicitis). It can also be an innocent problem th at goes away on its own (such as a viral infection). Often, time must pass to determine the cause of pain. The physician does not feel that hospitalization is necessary, at present. Things may change within the next 24 hours. Call the doctor or come back for re- examination if any problems occur, such as: (1) Pain that becomes more severe, steady, or becomes concentrated in one specific area. Also, pain that is more severe with movement or coughing. (2) Vomiting that persists or becomes more frequent. (3) Blood in the vomitus, urine, or bowel movements. Blood in the stool may have a tarry or black appearance. (4) Shaking chills or fever greater than 100 degrees F. (5) The abdomen becomes more distended or swollen. (6) Bowel movements cease. (7) Failure to improve as expected. You are found to have a possible mass on your kidney that could be kidney cancer. You also had blood in her urine. It is extremely important that you follow-up with the urologist as soon as possible to have further testing done. You should also follow-up with your primary doctor within [address] scan results and the lab results that I printed out for you when you follow-up with your doctors. if you should have any worsening pain, vomiting that is uncontrolled, fever, inability to urinate, or any other worsening or alarming symptoms return to the emergency department immediately. Referrals: JOE NICOLE PA-C [Primary Care Provider] - Follow up as needed [facility] [Provider Group] - Follow up as needed
[2019-11-22 20:16] LABS: ALBUMIN 4.5 g/dL (3.5-5.0); ALKALINE PHOSPHATASE 118 U/L (38-126); ANION GAP 7 (5-19); ASPARTATE AMINO TRANSFERASE 26 U/L (14-36); BILIRUBIN,TOTAL 0.3 mg/dL (0.2-1.3); BLOOD UREA NITROGEN 27 mg/dL (7-20); CALCIUM 10.3 mg/dL (8.4-10.2); CARBON DIOXIDE 28 mmol/L (22-30); CHLORIDE 103 mmol/L (98-107); GLUCOSE 100 mg/dL (75-110); POTASSIUM 4.8 mmol/L (3.6-5.0); TOTAL PROTEIN 7.9 g/dL (6.3-8.2)
[2019-11-22] MEDS ORDERED: DIPHENHYDRAMINE HCL 50 MG/ML VIAL IV ONE (20:24)
[2019-11-22] MEDS ORDERED: METHYLPREDNISOLONE INJ 125 MG/2 ML SDV IV ONE (21:03)
[2019-11-22] MEDS ORDERED: FAMOTIDINE INJ/PF 20 MG/2 ML SDV IV ONE (21:04)
--- NOTE | 2019-11-22 23:32 | RADIOLOGY REPORT (SQ) ---
EXAM DESCRIPTION: CT ABDOMEN PELVIS WITH IV CONTRAST COMPLETED DATE/TME: 11/22/2019 19:49 CLINICAL HISTORY: 54 years, Female, right upper quadrant abdominal pain intermittent COMPARISON: None. TECHNIQUE: 598 Images stored on PACS. All CT scanners at this facility use dose modulation, iterative reconstruction, and/or weight based dosing when appropriate to reduce radiation dose to as low as reasonably achievable (ALARA). [facility]: Dose Right [facility]: CareDose [facility]: Dose Right [facility]: Teradose 4D [facility]: [employer] LIMITATIONS: None. FINDINGS: Limited evaluation of the lung bases is unremarkable. Small hiatal hernia noted. Osseous structures are grossly intact. Diffuse fatty infiltrative change to the liver. Status post cholecystectomy. The spleen, adrenal glands, pancreas are unremarkable. Left renal cortical scar formation. Nonspecific hypodensity near the area of scarring measuring approximately 1.4 x 1.8 cm. While this may in part reflect an area of scar formation, neoplastic etiology is not excluded. This does not reflect simple cyst. Moderate atheromatous changes. No gross evidence for bowel obstruction. Colonic diverticulosis without CT evidence for diverticulitis. No free air or free fluid. The appendix is not visualized. No pericecal inflammation. IMPRESSION: There is an area of left renal cortical scar formation. At this site there is a somewhat poorly defined hypodense focus which does not meet criteria for simple cyst. Urologic follow-up recommended. Consider nonemergent follow-up with dedicated multiphasic MRI. Large amount stool in the colon. Colonic diverticulosis without CT evidence for diverticulitis. Fatty infiltrative change to the liver TECHNICAL DOCUMENTATION: Quality ID # [id number]: Final reports with documentation of one or more dose reduction techniques (e.g., Automated exposure control, adjustment of the mA and/or kV according to patient size, use of iterative reconstruction technique) copyright 2011 [employer]- All Rights Reserved
[2019-11-23 01:32] VITALS: BP 134/85
== END 2019-11-23 00:50 | disposition home or self-care (01) ==
LOC: ER 17:41
DX: R10.9 Unspecified abdominal pain (principal); N28.89 Other specified disorders of kidney and ureter; R31.9 Hematuria, unspecified; R10.11 Right upper quadrant pain; Z88.8 Allergy status to other drugs, medicaments and biological substances; F17.200 Nicotine dependence, unspecified, uncomplicated; I10 Essential (primary) hypertension
CPT/HCPCS: 99284; 96374; 96375; 36415; 83690; 85025; 80053; 81001; 76705; 74177; J1200; J3490; J2930; S0028

== ENCOUNTER 2020-01-11 12:13 | Emergency (ER) | payer BC ==
[2020-01-11] MEDS ORDERED: METOCLOPRAMIDE HCL ORAL SOLN 10 MG/10 ML UDCUP PO ONE (12:29)
[2020-01-11] MEDS ORDERED: MAG HYDROX/AL HYDROX/SIMETH SUSP 30 ML UDCUP PO ONE (12:29)
[2020-01-11] MEDS ORDERED: LIDOCAINE 2% VISCOUS SOLN 15 ML UDCUP PO ONE (12:29)
--- NOTE | 2020-01-11 12:32 | ER Document Report ---
ED Medical Screen (RME) - General Chief Complaint: Abdominal Pain Stated Complaint: ABDOMINAL PAIN Time Seen by Provider: 01/11/20 12:24 Primary Care Provider: JOE NICOLE PA-C [Primary Care Provider] - Follow up as needed Notes: Patient is a 54-year-old female who presents emergency department with a chief complaint of upper abdominal pain. Patient states that this feels similar as to when she had cholecystitis, she had a cholecystectomy. Patient also has history of kidney cancer on the left side. Patient states that her pain started this morning. Patient also has history of gastric ulcers in the past. She states that she is out of her omeprazole. Exam: Tender upper abdomen. I have greeted and performed a rapid initial assessment of this patient. A comprehensive ED assessment and evaluation of the patient, analysis of test results and completion of medical decision making process will be conducted by an additional ED providers. TRAVEL OUTSIDE OF THE [place] IN LAST 30 DAYS: No - Related Data Allergies/Adverse Reactions: Iodinated Contrast Media Allergy (Intermediate, Verified 11/22/19 17:53) Hives iodine [Iodine] Allergy (Intermediate, Verified 11/22/19 17:53) Hives CHLORINE Adverse Reaction (Uncoded 11/22/19 17:53) Hives Past Medical History - Social History Frequency of alcohol use: None Drug Abuse: None - Past Medical History Cardiac Medical History: Reports: Hx Hypercholesterolemia, Hx Hypertension Denies: Hx Coronary Artery Disease, Hx Heart Attack Pulmonary Medical History: Denies: Hx Asthma, Hx Bronchitis, Hx COPD, Hx Pneumonia, Hx Tuberculosis Neurological Medical History: Reports: Hx Migraine. Denies: Hx Cerebrovascular Accident, Hx Seizures Renal/ Medical History: Denies: Hx Peritoneal Dialysis GI Medical History: Reports: Hx Gastroesophageal Reflux Disease Musculoskeltal Medical History: Denies Hx Arthritis Past Surgical History: Reports: Hx Breast Surgery - lumpectomy, Hx Cholecystectomy, Hx Hysterectomy, Hx Tonsillectomy, Hx Tubal Ligation. Denies: Hx Pacemaker - Immunizations Hx Diphtheria, Pertussis, Tetanus Vaccination: Yes Physical Exam - Vital signs Vitals: Temp Pulse Resp BP Pulse Ox 99.0 F 95 20 131/81 H 96 01/11/20 12:20 01/11/20 12:20 01/11/20 12:20 01/11/20 12:20 01/11/20 12:20 Course - Vital Signs Vital signs: Temp Pulse Resp BP Pulse Ox 99.0 F 95 20 131/81 H 96 01/11/20 12:20 01/11/20 12:20 01/11/20 12:20 01/11/20 12:20 01/11/20 12:20 Doctor's Discharge - Discharge Referrals: JOE NICOLE PA-C [Primary Care Provider] - Follow up as needed
[2020-01-11 13:01] LABS: ABSOLUTE BASOPHILS # (AUTO) 0.1 10^3/uL (0.0-0.2); ABSOLUTE EOSINOPHILS # (AUTO) 0.3 10^3/uL (0.0-0.6); ABSOLUTE LYMPHOCYTES (AUTO) 3.6 10^3/uL (0.5-4.7); ABSOLUTE MONOCYTES (AUTO) 0.9 10^3/uL (0.1-1.4); ABSOLUTE NEUT (AUTO) 6.6 10^3/uL (1.7-8.2); BASOPHILS % (AUTO) 0.8 % (0-2); EOSINOPHILS % (AUTO) 2.6 % (0-6); HEMATOCRIT 42.5 % (36.0-47.0); HEMOGLOBIN 14.3 g/dL (12.0-15.5); LYMPHOCYTES % (AUTO) 31.3 % (13-45); MEAN CORPUSCULAR HEMOGLOBIN 28.9 pg (27.0-33.4); MEAN CORPUSCULAR HGB CONC 33.8 g/dL (32.0-36.0); MEAN CORPUSCULAR VOLUME 86 fl (80-97); MONOCYTES % (AUTO) 7.5 % (3-13); PLATELET COUNT 318 10^3/uL (150-450); RED BLOOD COUNT 4.96 10^6/uL (3.72-5.28); RED CELL DISTRIBUTION WIDTH 13.3 % (11.5-14.0); SEGMENTED NEUTROPHILS % (AUTO) 57.8 % (42-78); TOTAL CELLS COUNTED % (AUTO) 100 %; WHITE BLOOD COUNT 11.4 10^3/uL (4.0-10.5)
[2020-01-11 13:03] LABS: APPEARANCE,URINE CLEAR; BILIRUBIN,URINE NEGATIVE (NEGATIVE); COLOR,URINE STRAW; GLUCOSE, URINE NEGATIVE (NEGATIVE); KETONES,URINE NEGATIVE (NEGATIVE); LEUKOCYTE ESTERASE,URINE NEGATIVE (NEGATIVE); NITRITE,URINE NEGATIVE (NEGATIVE); PROTEIN,URINE NEGATIVE (NEGATIVE); URINE SPECIFIC GRAVITY 1.009; UROBILINOGEN,URINE NEGATIVE mg/dL (<2.0)
[2020-01-11 13:20] LABS: ALBUMIN 4.9 g/dL (3.5-5.0); ALKALINE PHOSPHATASE 122 U/L (38-126); ANION GAP 8 (5-19); ASPARTATE AMINO TRANSFERASE 22 U/L (14-36); BILIRUBIN,TOTAL 0.3 mg/dL (0.2-1.3); BLOOD UREA NITROGEN 27 mg/dL (7-20); CARBON DIOXIDE 31 mmol/L (22-30); CHLORIDE 101 mmol/L (98-107); GLUCOSE 95 mg/dL (75-110); POTASSIUM 4.4 mmol/L (3.6-5.0); TOTAL PROTEIN 8.5 g/dL (6.3-8.2)
--- NOTE | 2020-01-11 13:35 | RADIOLOGY REPORT (SQ) ---
EXAM DESCRIPTION: U/S ABDOMEN LIMITED W/O DOP IMAGES COMPLETED DATE/TIME: 01/11/2020 1:09 pm REASON FOR STUDY: RUQ abd pain COMPARISON: 11/22/2019 TECHNIQUE: Dynamic and static grayscale images acquired of the abdomen and recorded on PACS. Additio nal selected color Doppler and spectral images recorded. LIMITATIONS: None. FINDINGS: PANCREAS: No masses. Visualized pancreatic duct normal caliber. LIVER: Normal size Mild fatty infiltration. No focal masses. LIVER VASCULATURE: Normal directional flow of the main portal vein and hepatic veins. GALLBLADDER: Surgically absent. ULTRASOUND-DETECTED MENDOZA'S SIGN: Not applicable. INTRAHEPATIC DUCTS AND COMMON DUCT: CBD and intrahepatic ducts normal caliber. No filling defects. INFERIOR VENA CAVA: Normal flow. AORTA: No aneurysm. RIGHT KIDNEY: Normal size. 10 mm cyst. No solid or suspicious masses. No hydronephrosis. No calcifications. PERITONEAL AND RIGHT PLEURAL SPACE: No ascites or effusions. OTHER: No other significant findings. IMPRESSION: No acute findings. No significant change from 11/22/2019. TECHNICAL DOCUMENTATION: JOB ID: [id number] [employer]- All Rights Reserved Reading location - IP/workstation name: [email or web address]
[2020-01-11] MEDS ORDERED: SUCRALFATE 1 GM TABLET PO ONE (16:27)
[2020-01-11] MEDS ORDERED: ONDANSETRON 4 MG TAB.RAPDIS PO ONE (16:27)
--- NOTE | 2020-01-11 16:59 | ER Document Report ---
ED General - General Chief Complaint: Abdominal Pain Stated Complaint: ABDOMINAL PAIN Time Seen by Provider: 01/11/20 12:24 Primary Care Provider: JOE NICOLE PA-C [Primary Care Provider] - Follow up as needed Mode of Arrival: Ambulatory Information source: Patient TRAVEL OUTSIDE OF THE [place] IN LAST 30 DAYS: No - HPI Notes: Patient complains of right upper quadrant abdominal pain. She also states that she has had some burning in the epigastric area going to her back and that she feels this is consistent with her reflux pain. She states she is out of her reflux medication. She also states she has a history of renal cancer and recently had a new cyst on a kidney detected and does have follow-up at [place] this month for that. She states the pain in the right upper quadrant has been for 1 to 2 days. It is been relatively constant. It is an aching pain. It is moderate in intensity. She does not know anything makes it better or worse. She has had one episode of vomiting. No problems with urine or stool. - Related Data Allergies/Adverse Reactions: Iodinated Contrast Media Allergy (Intermediate, Verified 11/22/19 17:53) Hives iodine [Iodine] Allergy (Intermediate, Verified 11/22/19 17:53) Hives CHLORINE Adverse Reaction (Uncoded 11/22/19 17:53) Hives Past Medical History - General Information source: Patient - Social History Smoking Status: Current Every Day Smoker Frequency of alcohol use: None Drug Abuse: None Family History: Reviewed & Not Pertinent, CAD - Brother with 3 vessel bypass at 53 years old., DM, Hypertension - Past Medical History Cardiac Medical History: Reports: Hx Hypercholesterolemia, Hx Hypertension Denies: Hx Coronary Artery Disease, Hx Heart Attack Pulmonary Medical History: Denies: Hx Asthma, Hx Bronchitis, Hx COPD, Hx Pneumonia, Hx Tuberculosis Neurological Medical History: Reports: Hx Migraine. Denies: Hx Cerebrovascular Accident, Hx Seizures Renal/ Medical History: Denies: Hx Peritoneal Dialysis GI Medical History: Reports: Hx Gastroesophageal Reflux Disease Musculoskeletal Medical History: Denies Hx Arthritis Past Surgical History: Reports: Hx Breast Surgery - lumpectomy, Hx Cholecystectomy, Hx Hysterectomy, Hx Tonsillectomy, Hx Tubal Ligation. Denies: Hx Pacemaker - Immunizations Hx Diphtheria, Pertussis, Tetanus Vaccination: Yes Review of Systems - Review of Systems Constitutional: denies: Chills, Fever Cardiovascular: denies: Chest pain, Palpitations Respiratory: denies: Cough, Short of breath -: Yes All other systems reviewed and negative Physical Exam - Vital signs Vitals: Temp Pulse Resp BP Pulse Ox 99.0 F 95 20 131/81 H 96 01/11/20 12:20 01/11/20 12:20 01/11/20 12:20 01/11/20 12:20 01/11/20 12:20 Interpretation: Normal - General General appearance: Appears well, Alert - HEENT Head: Normocephalic, Atraumatic Eyes: Normal Pupils: PERRL - Respiratory Respiratory status: No respiratory distress Chest status: Nontender Breath sounds: Normal Chest palpation: Normal - Cardiovascular Rhythm: Regular Heart sounds: Normal auscultation Murmur: No - Abdominal Inspection: Normal Distension: No distension Bowel sounds: Normal Tenderness: Tender - Mild tenderness right upper quadrant to palpation. No surgical abdominal signs. Organomegaly: No organomegaly - Back Back: Normal, Nontender - Extremities General upper extremity: Normal inspection, Nontender, Normal color, Normal ROM, Normal temperature General lower extremity: Normal inspection, Nontender, Normal color, Normal ROM, Normal temperature, Normal weight bearing. No: Francisco Javier's sign - Neurological Neuro grossly intact: Yes Cognition: Normal Orientation: AAOx4 [place] Coma Scale Eye Opening: Spontaneous [place] Coma Scale Verbal: Oriented Lita Coma Scale Motor: Obeys Commands [place] Coma Scale Total: 15 Speech: Normal Motor strength normal: LUE, RUE, LLE, RLE Sensory: Normal - Psychological Associated symptoms: Normal affect, Normal mood - Skin Skin Temperature: Warm Skin Moisture: Dry Skin Color: Normal Course - Re-evaluation Re-evalutation: 01/11/20 16:56 Patient has right upper quadrant abdominal pain. She did not have surgical abdominal signs at this time. Based upon laboratories she does not have any significant evidence of liver or common bile duct stone. Ultrasound shows no evidence of liver or common bile duct pathology. There is no evidence of any infectious process in the urinary tract. Patient is already had her gallbladder resected. She did get relief with anti-reflux medication. I will discharge the patient with Carafate and have her follow-up with [facility] as scheduled. - Vital Signs Vital signs: Temp Pulse Resp BP Pulse Ox 99.0 F 95 20 131/81 H 96 01/11/20 12:20 01/11/20 12:20 01/11/20 12:20 01/11/20 12:20 01/11/20 12:20 - Laboratory Result Diagrams: 01/11/20 12:40 01/11/20 12:40 Laboratory results interpreted by me: 01/11/20 01/11/20 01/11/20 12:40 12:40 12:40 WBC 11.4 H Carbon Dioxide 31 H BUN 27 H Calcium 11.0 H Total Protein 8.5 H Urine Blood MODERATE H - Diagnostic Test Radiology reviewed: Image reviewed, Reports reviewed Discharge - Discharge Clinical Impression: Right upper quadrant abdominal pain GERD (gastroesophageal reflux disease) Qualifiers: Esophagitis presence: esophagitis presence not specified Qualified Code(s): K21.9 - Gastro-esophageal reflux disease without esophagitis Condition: Stable Disposition: HOME, SELF-CARE Instructions: Abdominal Pain ([facility]) Additional Instructions: Please follow-up with [facility] as instructed Prescriptions: Sucralfate [Carafate Susp 1 Gm/10 Ml Udcup] 1 gm PO Q6 14 Days #200 ml Forms: Return to Work Referrals: JOE NICOLE PA-C [Primary Care Provider] - Follow up in 3-5 days
[2020-01-11 17:15] VITALS: BP 115/75
== END 2020-01-11 17:14 | disposition home or self-care (01) ==
LOC: ER 12:13
DX: K21.9 Gastro-esophageal reflux disease without esophagitis (principal); R10.11 Right upper quadrant pain; R10.13 Epigastric pain; Z85.53 Personal history of malignant neoplasm of renal pelvis; Z88.8 Allergy status to other drugs, medicaments and biological substances; R11.10 Vomiting, unspecified; F17.200 Nicotine dependence, unspecified, uncomplicated; I10 Essential (primary) hypertension
CPT/HCPCS: 99284; 36415; 83690; 85025; 80053; 81001; 76705; S0119; J3490